=== PATIENT | male | born 1980 | race American Indian/Alaskan Native ===

== ENCOUNTER 2017-12-22 10:19 | Emergency (ER) | payer SELFPAY ==
[2017-12-22 10:37] VITALS: BP 115/71
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
== END 2017-12-22 11:50 | disposition home or self-care (01) ==
LOC: ED 10:19
DX: S50.12XA Contusion of left forearm, initial encounter (principal); S60.221A Contusion of right hand, initial encounter; F17.200 Nicotine dependence, unspecified, uncomplicated; F12.10 Cannabis abuse, uncomplicated; W21.03XA Struck by baseball, initial encounter; Y93.64 Activity, baseball; Y99.8 Other external cause status; Y92.89 Other specified places as the place of occurrence of the external cause
CPT/HCPCS: 99283

== ENCOUNTER 2017-12-25 04:21 | Emergency (ER) | payer SELFPAY ==
[2017-12-25] MEDS ORDERED: ZOFRAN ODT PO ONE ×2 (05:32→11:14)
[2017-12-25 06:04] LABS: Basophils # (Auto) 0.1 K/mm3 (0.0-0.1); Basophils % (Auto) 0.6 % (0.0-1.8); Eosinophils # (Auto) 0.2 K/mm3 (0.0-0.4); Eosinophils % (Auto) 2.5 % (0.0-4.3); Hematocrit 46.5 % (35.5-45.6); Hemoglobin 16.4 gm/dl (11.8-15.2); Lymphocytes # (Auto) 3.6 K/mm3 (1.2-5.4); Mean Corpuscular HGB Conc 35 % (32-34); Mean Corpuscular Hemoglobin 31 pg (28-32); Mean Corpuscular Volume 89 fl (84-94); Monocytes # (Auto) 0.8 K/mm3 (0.0-0.8); Monocytes % (Auto) 7.7 % (0.0-7.3); Platelet Count 243 K/mm3 (140-440); Red Blood Count 5.23 M/mm3 (3.65-5.03); Red Cell Distribution Width 13.5 % (13.2-15.2)
[2017-12-25 06:08] LABS: Bilirubin,Urine NEG (Negative); Blood,Urine NEG (Negative); Color,Urine Amber (Yellow); Mucus,Urine 3+ /HPF
[2017-12-25 06:12] LABS: Alanine Aminotransferase 14 units/L (7-56); Albumin 4.6 g/dL (3.9-5); BUN/Creatinine Ratio 24; Blood Urea Nitrogen 19 mg/dL (9-20); Calcium 9.7 mg/dL (8.4-10.2); Hemolysis Index 19
[2017-12-25 11:01] VITALS: BP 115/75
--- NOTE | 2017-12-25 11:19 | Emergency Department Report ---
ED General Adult HPI - General Chief complaint: Abdominal Pain Stated complaint: ABD PAIN Time Seen by Provider: 12/25/17 11:02 Source: patient Mode of arrival: Ambulatory Limitations: No Limitations - History of Present Illness Initial comments: Patient presents to emergency department for acute nausea, vomiting, and diarrhea for the last 2 days. Patient also complains of some abdominal cramping that has now resolved. Patient denies fever, chest pain, headache. Patient works in the food industry and is concerned that he might pass these on to others and thus his reason for his ED visit Severity scale (0 -10): 0 Improves with: none Worsens with: none Associated Symptoms: denies other symptoms Treatments Prior to Arrival: none - Related Data Previous Rx's Medication Instructions Recorded Last Taken Type Penicillin Vk [Veetids TAB] 500 mg PO QID #40 tablet 10/13/14 Unknown Rx Ibuprofen [Motrin 800 MG tab] 800 mg PO Q8H PRN #30 tablet 12/24/14 Unknown Rx Metaxalone [Skelaxin] 800 mg PO TID #30 tablet 12/24/14 Unknown Rx traMADol [Ultram 50 MG tab] 50 mg PO Q6HR PRN #20 tablet 12/24/14 Unknown Rx Naproxen [Naprosyn] 500 mg PO BID #14 tablet 12/22/17 Unknown Rx Ondansetron [Zofran Odt] 4 mg PO Q8HR PRN #20 tab.rapdis 12/25/17 Unknown Rx Promethazine [Phenergan TAB] 25 mg PO Q8HR PRN #20 tab 12/25/17 Unknown Rx Allergies Allergy/AdvReac Type Severity Reaction Status Date / Time No Known Allergies Allergy Verified 12/25/17 11:12 ED Review of Systems ROS: Stated complaint: ABD PAIN Other details as noted in HPI Constitutional: denies: chills, fever Eyes: denies: eye pain, eye discharge, vision change ENT: denies: ear pain, throat pain Respiratory: denies: cough, shortness of breath, wheezing Cardiovascular: denies: chest pain, palpitations Endocrine: no symptoms reported Gastrointestinal: nausea, vomiting, diarrhea. denies: abdominal pain Genitourinary: denies: urgency, dysuria Musculoskeletal: denies: back pain, joint swelling, arthralgia Skin: denies: rash, lesions Neurological: denies: headache, weakness, paresthesias Psychiatric: denies: anxiety, depression Hematological/Lymphatic: denies: easy bleeding, easy bruising ED Past Medical Hx - Past Medical History Previous Medical History?: Yes Hx Seizures: Yes Additional medical history: SEIZURES - Surgical History Past Surgical History?: No - Social History Smoking Status: Never Smoker Substance Use Type: Marijuana - Medications Home Medications: Home Medications Medication Instructions Recorded Confirmed Last Taken Type Penicillin Vk [Veetids TAB] 500 mg PO QID #40 tablet 10/13/14 Unknown Rx Ibuprofen [Motrin 800 MG tab] 800 mg PO Q8H PRN #30 tablet 12/24/14 Unknown Rx Metaxalone [Skelaxin] 800 mg PO TID #30 tablet 12/24/14 Unknown Rx traMADol [Ultram 50 MG tab] 50 mg PO Q6HR PRN #20 tablet 12/24/14 Unknown Rx Naproxen [Naprosyn] 500 mg PO BID #14 tablet 12/22/17 Unknown Rx Ondansetron [Zofran Odt] 4 mg PO Q8HR PRN #20 tab.rapdis 12/25/17 Unknown Rx Promethazine [Phenergan TAB] 25 mg PO Q8HR PRN #20 tab 12/25/17 Unknown Rx ED Physical Exam - General Limitations: No Limitations General appearance: alert, in no apparent distress - Head Head exam: Present: atraumatic, normocephalic - Eye Eye exam: Present: normal appearance - ENT ENT exam: Present: mucous membranes moist - Neck Neck exam: Present: normal inspection - Respiratory Respiratory exam: Present: normal lung sounds bilaterally. Absent: respiratory distress - Cardiovascular Cardiovascular Exam: Present: regular rate, normal rhythm. Absent: systolic murmur, diastolic murmur, rubs, gallop - GI/Abdominal GI/Abdominal exam: Present: soft, normal bowel sounds - Rectal Rectal exam: Present: deferred - Extremities Exam Extremities exam: Present: normal inspection - Back Exam Back exam: Present: normal inspection - Neurological Exam Neurological exam: Present: alert, oriented X3, CN II-XII intact. Absent: motor sensory deficit - Psychiatric Psychiatric exam: Present: normal affect, normal mood - Skin Skin exam: Present: warm, dry, intact, normal color. Absent: rash ED Course Vital Signs 12/25/17 12/25/17 12/25/17 05:24 11:00 11:01 Temperature 98.2 F 98.7 F Pulse Rate 63 59 L Respiratory 18 15 16 Rate Blood Pressure 115/73 Blood Pressure 115/75 [Left] O2 Sat by Pulse 100 100 100 Oximetry ED Medical Decision Making - Lab Data Result diagrams: 12/25/17 05:41 12/25/17 05:41 - Medical Decision Making Discussed results with the patient Critical care attestation.: If time is entered above; I have spent that time in minutes in the direct care of this critically ill patient, excluding procedure time. ED Disposition Clinical Impression: Nausea vomiting and diarrhea Disposition: - TO HOME OR SELFCARE Is pt being admited?: No Does the pt Need Aspirin: No Condition: Stable Instructions: Acute Nausea and Vomiting (ED) Additional Instructions: Return if worse Prescriptions: Ondansetron [Zofran Odt] 4 mg PO Q8HR PRN #20 tab.rapdis PRN Reason: Nausea Promethazine [Phenergan TAB] 25 mg PO Q8HR PRN #20 tab PRN Reason: Nausea Referrals: PRIMARY CAREMD [Primary Care Provider] - 3-5 Days RANDEE SMITH MD [Staff Physician] - 3-5 Days Forms: Work/School Release Form(ED) Time of Disposition: 11:17
== END 2017-12-25 11:43 | disposition home or self-care (01) ==
LOC: ED 04:21
DX: R11.2 Nausea with vomiting, unspecified (principal); R19.7 Diarrhea, unspecified; F12.10 Cannabis abuse, uncomplicated; Z79.899 Other long term (current) drug therapy
CPT/HCPCS: 36415; 80053; 81001; 85025; Q0162

== ENCOUNTER 2018-03-07 05:27 | Emergency (ER) | payer SELFPAY ==
[2018-03-07] MEDS ORDERED: ASPIRIN PO ONE (05:40)
[2018-03-07 06:14] LABS: Basophils # (Auto) 0.1 K/mm3 (0.0-0.1); Basophils % (Auto) 0.7 % (0.0-1.8); Eosinophils # (Auto) 0.4 K/mm3 (0.0-0.4); Eosinophils % (Auto) 4.8 % (0.0-4.3); Hematocrit 43.7 % (35.5-45.6); Hemoglobin 14.6 gm/dl (11.8-15.2); Lymphocytes # (Auto) 3.8 K/mm3 (1.2-5.4); Lymphocytes % (Auto) 41.3 % (13.4-35.0); Mean Corpuscular HGB Conc 34 % (32-34); Mean Corpuscular Hemoglobin 31 pg (28-32); Mean Corpuscular Volume 93 fl (84-94); Monocytes # (Auto) 0.7 K/mm3 (0.0-0.8); Monocytes % (Auto) 7.6 % (0.0-7.3); Platelet Count 200 K/mm3 (140-440); Red Cell Distribution Width 13.4 % (13.2-15.2)
--- NOTE | 2018-03-07 06:26 | XRay Report ---
FINAL REPORT EXAM: XR CHEST ROUTINE 2V HISTORY: dizziness TECHNIQUE: PA and lateral chest radiographs PRIORS: None. FINDINGS: No mediastinal shift. Cardiac silhouette is not enlarged. No pneumothorax, effusion, or focal pulmonary opacity. No acute skeletal finding. IMPRESSION: No focal pulmonary opacity.
[2018-03-07 06:31] LABS: BUN/Creatinine Ratio 14; Blood Urea Nitrogen 13 mg/dL (9-20); Calcium 8.8 mg/dL (8.4-10.2); Hemolysis Index 8
--- NOTE | 2018-03-07 09:08 | Emergency Department Report ---
ED Chest Pain HPI - General Chief Complaint: Chest Pain Stated Complaint: LT SHOULDER AND CHEST PAIN Time Seen by Provider: 03/07/18 08:21 Source: patient Mode of arrival: Ambulatory Limitations: No Limitations - History of Present Illness MD Complaint: chest pain -: Gradual, month(s) Onset: during rest Pain Location: substernal Pain Radiation: none Severity: moderate Severity scale (0 -10): 5 Quality: tightness, sharp Consistency: intermittent, now resolved Improves With: nothing Worsens With: nothing re: denies: nausea, vomting, diaphoresis, dyspnea Other Symptoms: denies: cough Treatments Prior to Arrival: none Aspirin use within the Past 7 Days: (0) No - Related Data On Oral Contraceptives: No Previous Rx's Medication Instructions Recorded Last Taken Type Penicillin Vk [Veetids TAB] 500 mg PO QID #40 tablet 10/13/14 Unknown Rx Ibuprofen [Motrin 800 MG tab] 800 mg PO Q8H PRN #30 tablet 12/24/14 Unknown Rx Metaxalone [Skelaxin] 800 mg PO TID #30 tablet 12/24/14 Unknown Rx traMADol [Ultram 50 MG tab] 50 mg PO Q6HR PRN #20 tablet 12/24/14 Unknown Rx Naproxen [Naprosyn] 500 mg PO BID #14 tablet 12/22/17 Unknown Rx Ondansetron [Zofran Odt] 4 mg PO Q8HR PRN #20 tab.rapdis 12/25/17 Unknown Rx Promethazine [Phenergan TAB] 25 mg PO Q8HR PRN #20 tab 12/25/17 Unknown Rx Allergies Allergy/AdvReac Type Severity Reaction Status Date / Time No Known Allergies Allergy Verified 12/25/17 11:12 Heart Score - HEART Score History: Slightly suspicious EKG: Non-specific Age: < 45 Risk factors: 1-2 risk factors Troponin: < normal limit HEART Score: 2 - Critical Actions Critical Actions: 0-3 pts:0.9-1.7%risk of adverse cardiac event.Candidate for discharge ED Review of Systems ROS: Stated complaint: LT SHOULDER AND CHEST PAIN Other details as noted in HPI Comment: All other systems reviewed and negative Constitutional: denies: chills, fever Eyes: denies: eye pain, eye discharge ENT: denies: ear pain, throat pain Respiratory: denies: cough, shortness of breath Cardiovascular: chest pain. denies: palpitations, dyspnea on exertion, edema Endocrine: no symptoms reported Gastrointestinal: denies: abdominal pain, nausea, vomiting, diarrhea Genitourinary: denies: urgency, dysuria, frequency Musculoskeletal: denies: back pain Skin: denies: rash, lesions Neurological: denies: headache, weakness, numbness Psychiatric: denies: anxiety, depression Hematological/Lymphatic: denies: easy bleeding, easy bruising ED Past Medical Hx - Past Medical History Previous Medical History?: Yes Hx Seizures: Yes Additional medical history: SEIZURES - Surgical History Past Surgical History?: Yes Additional Surgical History: arm - Social History Smoking Status: Current Every Day Smoker Substance Use Type: Alcohol, Marijuana - Medications Home Medications: Home Medications Medication Instructions Recorded Confirmed Last Taken Type Penicillin Vk [Veetids TAB] 500 mg PO QID #40 tablet 10/13/14 Unknown Rx Ibuprofen [Motrin 800 MG tab] 800 mg PO Q8H PRN #30 tablet 12/24/14 Unknown Rx Metaxalone [Skelaxin] 800 mg PO TID #30 tablet 12/24/14 Unknown Rx traMADol [Ultram 50 MG tab] 50 mg PO Q6HR PRN #20 tablet 12/24/14 Unknown Rx Naproxen [Naprosyn] 500 mg PO BID #14 tablet 12/22/17 Unknown Rx Ondansetron [Zofran Odt] 4 mg PO Q8HR PRN #20 tab.rapdis 12/25/17 Unknown Rx Promethazine [Phenergan TAB] 25 mg PO Q8HR PRN #20 tab 12/25/17 Unknown Rx ED Physical Exam - General Limitations: No Limitations General appearance: alert, in no apparent distress - Head Head exam: Present: atraumatic, normocephalic, normal inspection - Eye Eye exam: Present: normal appearance, PERRL, EOMI Pupils: Present: normal accommodation - ENT ENT exam: Present: normal exam, normal orophraynx, mucous membranes moist - Neck Neck exam: Present: normal inspection, full ROM. Absent: tenderness - Respiratory Respiratory exam: Present: normal lung sounds bilaterally. Absent: respiratory distress, wheezes, rales, rhonchi, stridor - Cardiovascular Cardiovascular Exam: Present: regular rate, normal rhythm, normal heart sounds - GI/Abdominal GI/Abdominal exam: Present: soft, normal bowel sounds. Absent: distended, tenderness, guarding, rebound, rigid - Extremities Exam Extremities exam: Present: normal inspection, full ROM, normal capillary refill. Absent: tenderness - Back Exam Back exam: Present: normal inspection, full ROM. Absent: tenderness - Neurological Exam Neurological exam: Present: alert, oriented X3, CN II-XII intact - Psychiatric Psychiatric exam: Present: normal affect, normal mood - Skin Skin exam: Present: warm, dry, intact, normal color. Absent: rash ED Course Vital Signs 03/07/18 05:33 Temperature 98.3 F Pulse Rate 70 Respiratory 12 Rate Blood Pressure 110/64 O2 Sat by Pulse 99 Oximetry - Reevaluation(s) Reevaluation #1: 03/07/18 15:33 I consulted the patient services rep underground distribution engineer Dr. Saunders. The patient's EKG was also sent to him and he reviewed. He recommended discharging patient home to follow- up at his outpatient clinic. Patient will be discharged home per patient services rep' s recommendation. I also advised patient is to stop using cocaine and marijuana. ALONSO score - Alonso Score Age > 65: (0) No Aspirin use within the Past 7 Days: (0) No 3 or more CAD Risk Factors: (0) No 2 or more Angina events in past 24 hrs: (0) No Known CAD with more than 50% Stenosis: (0) No Elevated Cardiac Markers: (0) No ST Deviation Greater than 0.5mm: (0) No ALONSO Score: 0 ED Medical Decision Making - Lab Data Result diagrams: 03/07/18 05:55 03/07/18 05:55 - EKG Data -: EKG Interpreted by Me EKG shows normal: sinus rhythm Rate: normal (64) - EKG Data When compared to previous EKG there are: previous EKG unavailable Interpretation: nonspecific ST-T wave jodee, other (No STEMI) - Radiology Data Radiology results: report reviewed, image reviewed - Medical Decision Making Chest Pain. Critical care attestation.: If time is entered above; I have spent that time in minutes in the direct care of this critically ill patient, excluding procedure time. ED Disposition Clinical Impression: Cocaine abuse, Marijuana abuse Chest pain Qualifiers: Chest pain type: unspecified Qualified Code(s): R07.9 - Chest pain, unspecified Disposition: DC-01 TO HOME OR SELFCARE Is pt being admited?: No Does the pt Need Aspirin: Yes Condition: Stable Instructions: Chest Pain (ED) Additional Instructions: Please follow up with the [employer] Teacher Dr Saunders for further cardiac evaluation. Office phone number: [phone]. Please STOP using Cocaine and Marijuana. Return to the ED if your condition worsens. Referrals: PRIMARY CARE, [Primary Care Provider] - 3-5 Days TAYLA SAUNDERS MD [Staff Physician] - 3-5 Days Forms: Work/School Release Form(ED) Time of Disposition: 15:33
[2018-03-07] MEDS ORDERED: NACL 0.9% 1000 ML 1,000 ML IV ONE ×2 (09:10→11:07)
--- NOTE | 2018-03-07 10:07 | Cat Scan Report ---
CT scan of head without IV contrast: History: Unsteady gait. Findings: Ventricles are normal in size and midline in location. No evidence of acute anemia or mild hemorrhage or mass. No extra axial fluid collection. Normal brainstem and cerebellum. Normal visualized sinuses and mastoid air cells. Impression: No acute intracranial abnormality.
[2018-03-07 12:08] LABS: Amphetamine Screen,Urine PRESUMPTIVE NEGATIVE
[2018-03-07 12:21] LABS: Benzodiazepines Screen,Urine PRESUMPTIVE NEGATIVE; Methadone Screen,Urine PRESUMPTIVE NEGATIVE; Opiate Screen,Urine PRESUMPTIVE NEGATIVE
[2018-03-07 12:31] LABS: Bilirubin,Urine Small (Negative); Blood,Urine Negative (Negative); Color,Urine Yellow (Yellow); Urobilinogen,Urine < 2.0 mg/dL (<2.0)
[2018-03-07 12:32] LABS: Ictotest,Urine Negative (Negative)
[2018-03-07 12:40] LABS: Cannabinoid Screen,Urine PRESUMPTIVE POSITIVE; Cocaine Screen,Urine PRESUMPTIVE POSITIVE
[2018-03-07 12:58] LABS: Mucus,Urine 3+ /HPF
[2018-03-07 16:04] VITALS: BP 119/59
== END 2018-03-07 16:03 | disposition home or self-care (01) ==
LOC: ED 05:27
DX: R07.89 Other chest pain (principal); F14.10 Cocaine abuse, uncomplicated; M25.512 Pain in left shoulder; F12.10 Cannabis abuse, uncomplicated; F17.200 Nicotine dependence, unspecified, uncomplicated; R51 Headache
CPT/HCPCS: 36415; 70450; 71046; 80048; 80307; 81001; 82550; 84484; 85025; 85379; 93005; 93010; 99285; J7030

== ENCOUNTER 2018-12-06 01:23 | Emergency (ER) | payer OTHER ==
--- NOTE | 2018-12-06 02:06 | XRay Report ---
PROCEDURE: XR CHEST ROUTINE 2V TECHNIQUE: PA and lateral chest radiographs were obtained. HISTORY: Right RIB/RUQ pain and bruising COMPARISONS: None. FINDINGS: Heart: Normal. Mediastinum/Vessels: Normal. Lungs/Pleural space: Normal. Bony thorax: No acute osseous abnormality. IMPRESSION: Normal examination. This document is electronically signed by Ester Montana DO., December 06 2018 02:04:31 AM ET
[2018-12-06] MEDS ORDERED: ULTRAM PO ONE (04:37)
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
[2018-12-06 05:41] VITALS: BP 110/75
== END 2018-12-06 05:40 | disposition home or self-care (01) ==
LOC: ED 01:23
DX: R07.81 Pleurodynia (principal); R07.89 Other chest pain; R10.9 Unspecified abdominal pain; M19.90 Unspecified osteoarthritis, unspecified site; F17.200 Nicotine dependence, unspecified, uncomplicated; F12.10 Cannabis abuse, uncomplicated; F14.10 Cocaine abuse, uncomplicated
CPT/HCPCS: 71046

== ENCOUNTER 2021-09-01 11:57 | Emergency (ER) | payer SELFPAY ==
[2021-09-01 13:13] VITALS: BP 112/67
[2021-09-01] MEDS ORDERED: ALUM-MAG HYDROXIDE-SIMETHICONE 200-200-20MG/5ML ORAL LIQD 30 ML PO ONE (13:56)
[2021-09-01] MEDS ORDERED: SUCRALFATE 1 GM/10 ML ORAL LIQD PO ONE (13:56)
[2021-09-01] MEDS ORDERED: PANTOPRAZOLE 40 MG TAB PO ONE (13:56)
[2021-09-01] MEDS ORDERED: ACETAMINOPHEN 325 MG TAB PO ONE (13:56)
--- NOTE | 2021-09-01 13:58 | Emergency Department Report ---
ED General Adult HPI - General Chief complaint: Abdominal Pain Stated complaint: BLACK STOOL/ABD PAIN PUI?: No Time Seen by Provider: 09/01/21 13:43 Source: patient, RN notes reviewed, old records reviewed Mode of arrival: Ambulatory Limitations: No Limitations - History of Present Illness Initial comments: The patient was evaluated in the emergency department for symptoms described in the history of present illness. He/she was evaluated in the context of the global COVID-19 pandemic, which necessitated consideration that the patient might be at risk for infection with the virus that causes COVID-19. Institutional protocols and algorithms that pertain to the evaluation of patients at risk for COVID-19 are in a state of rapid change based on information released by regulatory bodies including the CDC and federal and [facility] organizations. These policies and algorithms were followed during the patient's care in the emergency department. Please note that these policies, procedures and recommendations changed on a rapid basis. This patient is a 40-year-old gentleman, who presents to the ER today with a primary complaint of "I have bubbles in my stomach." The patient complains of nontraumatic upper/epigastric abdominal pain and cramping. Denies headache, neck pain, vomiting, hematemesis, bright red blood per rectum. He recently took Pepto-Bismol. He describes subsequent black stool. He denies urinary symptoms. He also complains of chronic left-sided chest pressure, associate with tobacco use. He denies other recreational drug use. Denies travel, surgery, immobilization, DVT/PE risk factors. Reports poor diet, not enough water intake, and consumption of plenty of heavy and spicy foods as well as processed foods. -: Gradual, days(s), week(s), month(s) Location: chest, abdomen Quality: aching Consistency: intermittent Improves with: none Worsens with: eating - Related Data Previous Rx's Medication Instructions Recorded Last Taken Type Penicillin Vk [Veetids TAB] 500 mg PO QID #40 tablet 10/13/14 Unknown Rx Ondansetron [Zofran Odt] 4 mg PO Q8HR PRN #20 tab.rapdis 12/25/17 Unknown Rx Menthol/Camphor [[place] 1 applicatio TP QID PRN #1 tube 07/20/18 Unknown Rx Ointment] Acetaminophen [Non-Aspirin Extra 500 mg PO Q6HR PRN #30 tablet 09/01/21 Unknown Rx Strength] Katerina Root [Katerina] 250 mg PO QID PRN #30 capsule 09/01/21 Unknown Rx Pantoprazole [Protonix TAB] 20 mg PO QDAY #30 tablet. 09/01/21 Unknown Rx Allergies Allergy/AdvReac Type Severity Reaction Status Date / Time No Known Allergies Allergy Verified 12/25/17 11:12 ED Review of Systems ROS: Stated complaint: BLACK STOOL/ABD PAIN Other details as noted in HPI Constitutional: denies: fever Eyes: denies: vision change ENT: denies: epistaxis Respiratory: denies: cough Cardiovascular: chest pain Gastrointestinal: abdominal pain. denies: vomiting, hematemesis, melena, hemat ochezia Genitourinary: denies: dysuria, testicular pain Musculoskeletal: denies: back pain Neurological: denies: weakness Hematological/Lymphatic: denies: easy bleeding ED Past Medical Hx - Past Medical History Hx Arthritis: Yes Hx Seizures: Yes (Febrile) Additional medical history: SEIZURES - Surgical History Additional Surgical History: arm - Social History Smoking Status: Current Every Day Smoker Substance Use Type: Alcohol, Cocaine, Marijuana - Medications Home Medications: Home Medications Medication Instructions Recorded Confirmed Last Taken Type Penicillin Vk [Veetids TAB] 500 mg PO QID #40 tablet 10/13/14 Unknown Rx Ondansetron [Zofran Odt] 4 mg PO Q8HR PRN #20 tab.rapdis 12/25/17 Unknown Rx Menthol/Camphor [[place] 1 applicatio TP QID PRN #1 tube 07/20/18 Unknown Rx Ointment] Acetaminophen [Non-Aspirin Extra 500 mg PO Q6HR PRN #30 tablet 09/01/21 Unknown Rx Strength] Katerina Root [Katerina] 250 mg PO QID PRN #30 capsule 09/01/21 Unknown Rx Pantoprazole [Protonix TAB] 20 mg PO QDAY #30 tablet. 09/01/21 Unknown Rx ED Physical Exam - General Limitations: No Limitations General appearance: alert, in no apparent distress - Head Head exam: Present: atraumatic, normocephalic - Eye Eye exam: Present: normal appearance, EOMI. Absent: nystagmus - ENT ENT exam: Present: normal exam, normal orophraynx, mucous membranes moist, normal external ear exam - Neck Neck exam: Present: normal inspection, full ROM. Absent: tenderness, m eningismus - Respiratory Respiratory exam: Present: normal lung sounds bilaterally. Absent: respiratory distress, wheezes, rales, rhonchi, stridor, decreased breath sounds - Cardiovascular Cardiovascular Exam: Present: regular rate, normal rhythm, normal heart sounds. Absent: bradycardia, tachycardia, irregular rhythm, systolic murmur, diastolic murmur, rubs, gallop - GI/Abdominal GI/Abdominal exam: Present: soft, normal bowel sounds. Absent: distended, tenderness, guarding, rebound, rigid - Rectal Rectal exam: Present: normal inspection, normal rectal tone, heme (-) stool, other (Chaperoned by Jey Foreman RN). Absent: heme (+) stool, black stool, bloody stool - Extremities Exam Extremities exam: Present: normal inspection, full ROM, other (2+ pulses noted in the bilateral upper and lower extremities. There is no palpable cord. negative Homans sign. Muscular compartments are soft. The pelvis is stable.). Absent: pedal edema, calf tenderness - Back Exam Back exam: Present: normal inspection, full ROM. Absent: tenderness, CVA tender ness (R), CVA tenderness (L), paraspinal tenderness, vertebral tenderness - Neurological Exam Neurological exam: Present: alert, oriented X3, normal gait, other (No facial droop. Tongue midline. Extraocular movements intact bilaterally. Facial sensation intact to light touch in V1, V2, V3 distribution bilaterally. 5 and a 5 strength in 4 extremities. Sensation intact to light touch in 4 extremities.). Absent: motor sensory deficit - Psychiatric Psychiatric exam: Present: normal affect, normal mood - Skin Skin exam: Present: warm, dry, intact, normal color. Absent: rash ED Course Vital Signs 09/01/21 13:12 Temperature 98.7 F Pulse Rate 63 Respiratory 18 Rate Blood Pressure 112/67 O2 Sat by Pulse 100 Oximetry - Reevaluation(s) Reevaluation #1: 09/01/21 15:20 Laboratory studies nonactionable. Patient resting comfortably. Feels improved. Discharged with outpatient follow-up ED Medical Decision Making - Lab Data Result diagrams: 09/01/21 14:28 09/01/21 14:28 Vital Signs 09/01/21 13:12 Temperature 98.7 F Pulse Rate 63 Respiratory 18 Rate Blood Pressure 112/67 O2 Sat by Pulse 100 Oximetry Lab Results 09/01/21 Range/Units 14:28 WBC 7.3 (4.5-11.0) K/mm3 RBC 5.08 H (3.65-5.03) M/mm3 Hgb 15.3 H (11.8-15.2) gm/dl Hct 46.7 H (35.5-45.6) % MCV 92 (84-94) fl MCH 30 (28-32) pg MCHC 33 (32-34) % RDW 13.1 L (13.2-15.2) % Plt Count 182 (140-440) K/mm3 Lab Results 09/01/21 09/01/21 09/01/21 Range/Units 14:28 14:28 14:28 WBC 7.3 (4.5-11.0) K/mm3 RBC 5.08 H (3.65-5.03) M/mm3 Hgb 15.3 H (11.8-15.2) gm/dl Hct 46.7 H (35.5-45.6) % MCV 92 (84-94) fl MCH 30 (28-32) pg MCHC 33 (32-34) % RDW 13.1 L (13.2-15.2) % Plt Count 182 (140-440) K/mm3 Sodium 138 (137-145) mmol/L Potassium 4.4 (3.6-5.0) mmol/L Chloride 102.8 (98-107) mmol/L Carbon Dioxide 26 (22-30) mmol/L Anion Gap 14 mmol/L BUN 8 L (9-20) mg/dL Creatinine 0.8 (0.8-1.3) mg/dL Estimated GFR > 60 ml/min BUN/Creatinine Ratio 10 % Glucose 77 (75-100) mg/dL Calcium 9.2 (8.4-10.2) mg/dL Troponin T < 0.010 (0.00-0.029) ng/mL - EKG Data -: EKG Interpreted by Al EKG shows normal: sinus rhythm - EKG Data Interpretation: unchanged when compared t 09/01/21 15:19 EKG today is compared to prior EKG from 2018. Today's EKG demonstrates a sinus rhythm, bradycardia, with a rate of 49 bpm. There is a borderline rightward axis deviation, there is high left ventricular voltage. The intervals are otherwise unremarkable. Grossly unchanged when compared to prior, although rightward axis deviation today appears to be more prominent - Radiology Data Radiology results: pending, report reviewed, image reviewed CHEST 2 VIEWS INDICATION: chronic chest pain. COMPARISON: 12/06/2018. F INDINGS: Support devices: None. Heart: Within normal limits. Lungs/Pleura: No acute air space or interstitial disease. No significant pleural effusion. IMPRESSION: No acute findings. Signer Name: Rubens Zazueta MD Signed: 09/01/2021 1:10 PM Workstation Name: [id number] - Medical Decision Making Differential diagnosis, including but not limited to: GERD, gastritis, hiatal hernia, costochondritis Assessment and plan: 40-year-old gentleman, who was afebrile, with reassuring vital signs, who is not currently tachycardic, tachypneic or hypoxic, who denies DVT/PE risk factors, who is PERC negative, low risk by Wells criteria for pulmonary embolism, with chronic chest pressure and epigastric abdominal pain, low risk for major adverse cardiac event as per heart score; presuming troponin negative x1, symptoms present for days, weeks and months, therefore, myocardial infarction is excluded with 1 set of troponin/cardiac enzymes. Suspect benign/GI etiology. Check appropriate laboratory studies x-ray the chest and EKG. Treat patient's symptoms. If no remarkable findings noted, discharged with diet and lifestyle modifications. Patient reports that he is not using recreational drugs at this time. Critical care attestation.: If time is entered above; I have spent that time in minutes in the direct care of this critically ill patient, excluding procedure time. ED Disposition Clinical Impression: Epigastric abdominal pain, Chronic chest pain Disposition: HOME / SELF CARE / HOMELESS Is pt being admited?: No Does the pt Need Aspirin: No Condition: Good Instructions: Gastroesophageal Reflux Scan, Food Choices for Gastroesophageal Reflux Disease, Adult, Nonspecific Chest Pain, Adult Additional Instructions: Please minimize/avoid consumption of Motrin, ibuprofen, Naprosyn, Aleve, alcohol, tobacco products, smoke products. Avoid consumption of heavy and spicy foods. Drink 6 cups of water per day, and consume plenty of fiber, vegetables, and lean protein, and avoid consumption of simple carbohydrates and processed foods. Epifanio reddy may take the prescribed medications as needed and directed. Symptoms will likely take a few weeks to a few months to improve. We also recommend follow-up with an outpatient primary care doctor within the next month. Please return to the emergency room right away with new pain, worsened pain, migration of pain, projectile vomiting, change in mental status, confusion, inability tolerate liquid feeds, new, worsened or different symptoms not present on the initial emergency room evaluation Prescriptions: Katerina Root [Katerina] 250 mg PO QID PRN #30 capsule PRN Reason: Nausea Acetaminophen [Non-Aspirin Extra Strength] 500 mg PO Q6HR PRN #30 tablet PRN Reason: Pain , Severe (7-10) Pantoprazole [Protonix TAB] 20 mg PO QDAY #30 tablet. Referrals: PRIMARY CARE, [Primary Care Provider] - 3-5 Days [facility] [Provider Group] - 3-5 Days Forms: Work/School Release Form(ED)
--- NOTE | 2021-09-01 14:15 | XRay Report ---
CHEST 2 VIEWS INDICATION: chronic chest pain. COMPARISON: 12/06/2018. FINDINGS: Support devices: None. Heart: Within normal limits. Lungs/Pleura: No acute air space or interstitial disease. No significant pleural effusion. IMPRESSION: No acute findings. Signer Name: Rubens Zazueta MD Signed: 09/01/2021 2:10 PM Workstation Name: [id number]
[2021-09-01 14:42] LABS: Hematocrit 46.7 % (35.5-45.6); Hemoglobin 15.3 gm/dl (11.8-15.2); Mean Corpuscular HGB Conc 33 % (32-34); Mean Corpuscular Volume 92 fl (84-94); Platelet Count 182 K/mm3 (140-440); Red Blood Count 5.08 M/mm3 (3.65-5.03); Red Cell Distribution Width 13.1 % (13.2-15.2)
[2021-09-01 15:05] LABS: BUN/Creatinine Ratio 10; Blood Urea Nitrogen 8 mg/dL (9-20); Calcium 9.2 mg/dL (8.4-10.2); Hemolysis Index 17
== END 2021-09-01 15:36 | disposition home or self-care (01) ==
LOC: ED 11:57
DX: G89.29 Other chronic pain (principal); R10.13 Epigastric pain; R07.9 Chest pain, unspecified; F17.200 Nicotine dependence, unspecified, uncomplicated; F12.10 Cannabis abuse, uncomplicated; F14.10 Cocaine abuse, uncomplicated
CPT/HCPCS: 36415; 71046; 80048; 84484; 85027; 93005; 99284